=== PATIENT | female | born 1995 | race Caucasian/White ===

== ENCOUNTER 2019-07-20 13:15 | Emergency (ER) | payer MEDICAID ==
[~2019-07-20] VITALS: Ht 154.9 cm; Wt 74.5 kg
[~2019-07-20 13:15] MED LIST: MOTRIN 800800 MG/TAB PO; NORCO 325 MG-51 TAB PO
[2019-07-20 13:25] VITALS: BP 118/72; TEMP 98.8
[2019-07-20 14:15] LABS: STREP SCREEN NEGATIVE
[2019-07-20 15:11] VITALS: PULSE 94
== END 2019-07-20 15:11 | disposition home or self-care (01) ==
LOC: COL.ER 13:15
PROVIDERS: Physician Assistant
DX: O99.511 Diseases of the respiratory system complicating pregnancy, first trimester (principal); J06.9 Acute upper respiratory infection, unspecified; J45.909 Unspecified asthma, uncomplicated; Z3A.11 11 weeks gestation of pregnancy

== ENCOUNTER 2020-02-05 05:35 | Inpatient (IN) | payer MEDICAID ==
[~2020-02-05] VITALS: Ht 157.5 cm; Wt 75.5 kg
[2020-02-05] VITALS (41 sets, daily range): BP systolic 103–145; BP diastolic 54–84; PULSE 80–111; TEMP 97.4–98.7
--- NOTE | 2020-02-05 05:30 | NUR ---
G1 at 39.6 weeks gestation to LDR3 with c/o contractions. Patient changed into gown, wedged right in bed. Patient reports good movement and denies leaking of fluid or vaginal bleeding. EFMs explained and applied. FHR 140 bpm and reactive. CTX q2-4 minutes, patient breathing through them. VSS. SVE 4/80/-2. Assessment completed. Plan of care reviewed.
[2020-02-05] MEDS ORDERED: PRENATAL TABLET PO (06:27)
[2020-02-05] MEDS ORDERED: NATURAL IRON65 MG (06:28)
--- NOTE | 2020-02-05 06:30 | NUR ---
Assumed care of patient. Rests in bed, alert, significant other at bedside. Breathes throught contractions.
[2020-02-05 06:43] LABS: HEMOGLOBIN 12.2 g/dl (12.5-16.0); MEAN CELL VOLUME 82 fl (80.0-100.0); MEAN CORPUSCULAR HEMOGLOBIN 28 pg (27.0-31.0); MEAN CORPUSCULAR HGB CONC 34 g/dl (33.0-37.0); PLATELET COUNT 244 K/mm3 (130-400); RED BLOOD COUNT 4.42 M/mm3 (4.10-5.30)
[2020-02-05 06:45] LABS: HEMATOCRIT 36.3 % (37.0-47.0)
--- NOTE | 2020-02-05 06:45 | NUR ---
7679 Anesthesia called to let know request for epidural. Lactated ringers iv started bolus.
--- NOTE | 2020-02-05 07:15 | NUR ---
0721 Anesthesia here, visits with patient. Single shot given at 0731 by Priscila Mendoza c.r.n.a. Test dose given aat 0737 by anesthesia.
[2020-02-05 07:30] LABS: BAND 17 % (0-10); EOSINOPHIL 3 % (0-4); LYMPHOCYTE 17 % (20.0-51.0); METAMYELOCYTE 1 % (0-0); NEUTROPHILS 62 % (42.0-75.2); PLATELET ESTIMATE NORMAL (NORMAL)
--- NOTE | 2020-02-05 07:30 | NUR ---
0740 Lies down after epidural. States feels better already.
--- NOTE | 2020-02-05 08:00 | NUR ---
Rests in bed, alert. States feeling sick. Emisis basin given to patient. Cool wash cloth given. 100 ccs of white color liquid noted.
--- NOTE | 2020-02-05 08:15 | NUR ---
Rests in bed, alert. Chua catheter placed per sterile technique. Moderate amount of clear yellow urine noted.
--- NOTE | 2020-02-05 10:00 | NUR ---
Dr. Santana here, visits with patient. Arom done by Dr. Santana, moderate amount of clear fluid noted. Pad changed and brie-care given.
--- NOTE | 2020-02-05 12:15 | NUR ---
Patient complete. Dr. Santana notified. See physicians notification. 1220 Starts pushing with contractions.
--- NOTE | 2020-02-05 12:45 | NUR ---
Continues to push with contractions. Tolerates well.
--- NOTE | 2020-02-05 13:00 | NUR ---
Rests in bed, pushes with contractions. Denies any needs at this time.
--- NOTE | 2020-02-05 13:15 | NUR ---
Called Dr. Santana to come to hospital. Dr. Santana states to have patient labor down for about fifteen minutes. This nurse stops pushing with patient.
--- NOTE | 2020-02-05 13:30 | NUR ---
Dr. Santana here, starts pushing with patient.
--- NOTE | 2020-02-05 13:45 | NUR ---
Continues to push with Dr. Santana. Does well.
--- NOTE | 2020-02-05 14:06 | NUR ---
Spontaneous delivery of baby boy by Dr. Santana. 1409 Spontaneous delivery of placenta by Dr. Santana. Pitocin infusing at 333ccs an hour.
--- NOTE | 2020-02-05 14:15 | NUR ---
Rests in bed, alert. Holds baby lovingly. Dr. Santana doing repair work.
--- NOTE | 2020-02-05 14:45 | NUR ---
Continues to hold baby lovingly, tearful, father of baby at bedside.
--- NOTE | 2020-02-05 15:00 | NUR ---
Rests in bed, alert. Holds baby, denies any needs at this time.
--- NOTE | 2020-02-05 17:15 | NUR ---
Ambulates to the bathroom. Voids moderate amount of clear yellow urine. Mara-care shown and done by patient. Ice pack on, clean gown on. Ambulates to room 207, tolerates well. Denies any discomfort or needs at this time.
[2020-02-06 02:00] VITALS: BP 105/58; PULSE 92; TEMP 97.8
[2020-02-06 05:28] VITALS: BP 111/54; PULSE 78; TEMP 97.6
[2020-02-06 08:30] VITALS: BP 120/66; PULSE 84; TEMP 97.7
[2020-02-06 12:30] VITALS: BP 123/63; PULSE 94; TEMP 98.3
[2020-02-06] MEDS ORDERED: MOTRIN 600600 MG/TAB PO (12:59)
== END 2020-02-06 17:00 | disposition home or self-care (01) | DRG 807 ==
LOC: LDR 05:35 → OB 17:15
PROVIDERS: Obstetrics & Gynecology; ADMIT Student in an Organized Health Care Education/Training Program
PROC: 10E0XZZ Delivery of Products of Conception, External Approach (ICD-10-PCS; principal; 2020-02-05)
PROC: 0KQM0ZZ Repair Perineum Muscle, Open Approach (ICD-10-PCS; 2020-02-05)
DX: O99.52 Diseases of the respiratory system complicating childbirth (principal); Z37.0 Single live birth; J45.20 Mild intermittent asthma, uncomplicated; O99.214 Obesity complicating childbirth; O99.354 Diseases of the nervous system complicating childbirth; G43.909 Migraine, unspecified, not intractable, without status migrainosus; O70.1 Second degree perineal laceration during delivery; Z3A.39 39 weeks gestation of pregnancy
CPT/HCPCS: J2590; J2795; J7120

== ENCOUNTER 2020-03-14 07:13 | Emergency (ER) | payer MEDICAID ==
[~2020-03-14] VITALS: Ht 157.5 cm; Wt 70.5 kg
[~2020-03-14 07:13] MED LIST changes: +CEPHALEXIN500 M1 PO; +MOTRIN 600600 MG/TAB PO; +NATURAL IRON65 MG PO; +PRENATAL TABLET PO; +STOOL SOFTENER100 M2 PO
[2020-03-14 07:24] VITALS: TEMP 97.8
[2020-03-14 07:45] LABS: COLLECTION METHOD CLEAN CATCH
[2020-03-14 07:48] LABS: BASO # 0.1 (0.0-0.2); BASO % 0.6 % (0.0-2.0); EOS # 2.3 (0.0-0.7); EOS % 20.9 % (0-4.0); GRAN % 54.7 % (42.2-75.2); HEMATOCRIT 38.4 % (37.0-47.0); HEMOGLOBIN 12.7 g/dl (12.5-16.0); LYMPH # 1.8 (1.2-3.4); LYMPH % 16.2 % (20.0-51.0); MEAN CELL VOLUME 84 fl (80.0-100.0); MEAN CORPUSCULAR HEMOGLOBIN 28 pg (27.0-31.0); MEAN CORPUSCULAR HGB CONC 33 g/dl (33.0-37.0); MEAN PLATELET VOLUME 9.2 fl (7.4-10.4); MONO # 0.7 (0.1-0.6); MONO % 6.2 % (1.7-9.3); PLATELET COUNT 289 K/mm3 (130-400); REDCELL DISTRIBUTION WIDTH-CV 12.8 % (11.5-14.5)
[2020-03-14 07:53] LABS: PH 6 (5-8); SQUAMOUS EPITHELIAL None Seen /hpf; URINE APPEARANCE Clear; URINE BACTERIA None Seen /hpf; URINE BILIRUBIN Negative (NEGATIVE); URINE BLOOD Negative (NEGATIVE); URINE COLOR Straw; URINE GLUCOSE Negative (NEGATIVE); URINE KETONE Negative (NEGATIVE); URINE LEUKOCYTE ESTERASE Negative (NEGATIVE); URINE NITRATE Negative (NEGATIVE); URINE PROTEIN(semi-quant) Negative (NEGATIVE); URINE RBC None Seen /hpf; URINE UROBILINOGEN Negative (NEGATIVE)
[2020-03-14 08:01] LABS: ALBUMIN 4.1 gm/dL (3.5-5.0); BILIRUBIN,TOTAL 0.3 mg/dL (0.0-1.0); C-REACTIVE PROTEIN 0.7 mg/dL (0.0-0.9); CALCIUM 9.1 mg/dL (8.4-10.2); CREATININE, serum 0.56 (0.52-1.25); TOTAL PROTEIN 7.6 gm/dL (6.4-8.2)
[2020-03-14 10:44] VITALS: BP 111/68; PULSE 78
[2020-03-15] MEDS ORDERED: NORCO 325 MG-51 TAB PO (03:35)
[2020-03-15] MEDS ORDERED: ZOFRAN ODT4 MG PO (03:35)
== END 2020-03-14 10:45 | disposition home or self-care (01) ==
LOC: COL.ER 07:13
PROVIDERS: Emergency Medicine
DX: K80.50 Calculus of bile duct without cholangitis or cholecystitis without obstruction (principal)

== ENCOUNTER 2020-03-15 01:45 | Emergency (ER) | payer MEDICAID ==
[~2020-03-15] VITALS: Ht 157.5 cm; Wt 70.5 kg
[2020-03-15 02:06] VITALS: BP 136/82; TEMP 98.1
[2020-03-15 02:11] LABS: HEMATOCRIT 37.9 % (37.0-47.0); HEMOGLOBIN 12.5 g/dl (12.5-16.0); MEAN CELL VOLUME 83 fl (80.0-100.0); MEAN CORPUSCULAR HEMOGLOBIN 27 pg (27.0-31.0); MEAN CORPUSCULAR HGB CONC 33 g/dl (33.0-37.0); MEAN PLATELET VOLUME 9.5 fl (7.4-10.4); PLATELET COUNT 310 K/mm3 (130-400); RED BLOOD COUNT 4.57 M/mm3 (4.10-5.30); REDCELL DISTRIBUTION WIDTH-CV 12.7 % (11.5-14.5)
[2020-03-15 02:29] LABS: ALANINE AMINOTRANSFERASE 103 U/L (4-34); ALKALINE PHOSPHATASE 125 U/L (50-136); ANION GAP 9 mmol/L (7-16); AST,SGOT 62 U/L (15-37); BILIRUBIN,TOTAL 0.3 mg/dL (0.0-1.0); BLOOD UREA NITROGEN 11 mg/dL (7-17); C-REACTIVE PROTEIN < 0.5 mg/dL (0.0-0.9); CALCIUM 8.8 mg/dL (8.4-10.2); CARBON DIOXIDE 26 mmol/L (22-30); CHLORIDE 103 mmol/L (98-107); CREATININE, serum 0.58 (0.52-1.25); GLUCOSE 102 mg/dL (74-106); POTASSIUM 3.7 mmol/L (3.4-5.0); SODIUM 138 mmol/L (137-145); TOTAL PROTEIN 7.2 gm/dL (6.4-8.2)
[2020-03-15 02:52] LABS: BAND 9 % (0-10); BASOPHIL 2 % (0-2); EOSINOPHIL 8 % (0-4); LYMPHOCYTE 19 % (20.0-51.0); METAMYELOCYTE 2 % (0-0); NEUTROPHILS 54 % (42.0-75.2)
[2020-03-15 02:53] LABS: PLATELET ESTIMATE NORMAL (NORMAL); TEAR DROP CELLS 1+
[2020-03-15] MEDS ORDERED: ZOFRAN ODT4 MG PO (03:35)
[2020-03-15] MEDS ORDERED: NORCO 325 MG-51 TAB PO (03:35)
[2020-03-15 03:57] VITALS: PULSE 94
== END 2020-03-15 04:00 | disposition home or self-care (01) ==
LOC: COL.ER 01:45
PROVIDERS: Nurse Practitioner
DX: R10.11 Right upper quadrant pain (principal); R11.2 Nausea with vomiting, unspecified; K80.80 Other cholelithiasis without obstruction; Z79.1 Long term (current) use of non-steroidal anti-inflammatories (NSAID)
CPT/HCPCS: J1170; J2405; J7030

== ENCOUNTER 2020-04-05 05:44 | Day surgery (SDC) | payer MEDICAID ==
[2020-04-05] VITALS (7 sets, daily range): BP systolic 98–128; BP diastolic 55–83; PULSE 68–98; TEMP 97.5–98.7
[~2020-04-05] VITALS: Ht 157.5 cm; Wt 73.3 kg
[~2020-04-05 05:44] MED LIST changes: +ZOFRAN ODT4 MG PO
[2020-04-05] MEDS ORDERED: NORCO 325 MG-51 TAB PO ×2 (05:49→08:21)
[2020-04-05] MEDS ORDERED: ZYRTEC 10MG10 MG PO (05:49)
--- NOTE | 2020-04-05 09:05 | NUR ---
The patient arrived back to [place] [facility] from the recovery room at this time. The patient appears alert and oriented and denies any nausea but reports some discomfort in her abdomen at this time. Post operative vital signs were started at this time. The patient has some ice chips and appears to be tolerating them well, she denies wanting anything further to eat or drink at this time. The patient has three bandaids to her abdomen that appear clean, dry and intact. Call light is within reach. Will continue to monitor the patient.
--- NOTE | 2020-04-05 09:20 | NUR ---
The patient appears to be resting comfortably on the cart at this time. Vital signs appear stable. The patient agrees to try some apple juice and toast with jelly. Call light remains within reach. Will continue to monitor the patient.
--- NOTE | 2020-04-05 09:35 | NUR ---
The patient appears to be resting comfortably on the cart and tolerating the food and drink well. The patien does report some discomfort in her left shoulder and the nurse explained how this can be caused by a laparoscopic surgery. The patient is to be given a PRN dose of [place] once she has finished her food.
--- NOTE | 2020-04-05 09:50 | NUR ---
The patient was given a PRN dose of [place] one tab at this time to help with pain control. The patient has finished her food and drink and appeared to tolerate both well. Vital signs appear stable. Will continue to monitor the patient.
--- NOTE | 2020-04-05 10:12 | NUR ---
The patient appears to be resting comfortably on the cart with her eyes closed at this time. Respirations even and unlabored. Will continue to monitor the patient. Vital signs remain stable. Will continue to monitor the patient.
--- NOTE | 2020-04-05 10:54 | NUR ---
The patient appears to be resting quietly with her eyes closed at this time. Respirations and unable. Vital signs appear stable. Call light remains within reach. Will continue to monitor the patient.
--- NOTE | 2020-04-05 11:10 | NUR ---
The patient ambulated to the bathroom with the stand by assistance of one nurse and appeared to tolerate the activity well. The nurse instructed the patient to get dressed if she is successful in voiding and notify the staff when she is ready to review her discharge paperwork.
--- NOTE | 2020-04-05 11:30 | NUR ---
Discharge instructions were reviewed with the patient at this time. She verbalized understanding and have no questions for the nurse at this time. The patient's belongings and discharge paperwork were sent with her. The patient is dressed and ready to be escorted out.
--- NOTE | 2020-04-05 11:37 | NUR ---
The patient was escorted out via wheelchair to a private vehicle by NAZIA Salazar. The patient's belongings and discharge paperwork were sent with her. The patient's grandmother is present to drive her home.
== END 2020-04-05 11:37 | disposition home or self-care (01) ==
LOC: SDCO 05:44
DX: K80.10 Calculus of gallbladder with chronic cholecystitis without obstruction (principal); D64.9 Anemia, unspecified; J45.909 Unspecified asthma, uncomplicated; G43.909 Migraine, unspecified, not intractable, without status migrainosus; Z85.42 Personal history of malignant neoplasm of other parts of uterus; Z20.828 Contact with and (suspected) exposure to other viral communicable diseases; Z80.3 Family history of malignant neoplasm of breast; Z83.3 Family history of diabetes mellitus
CPT/HCPCS: J1885; J2405; J2704; J3010; J7120; Q9967

== ENCOUNTER 2021-11-18 07:55 | Emergency (ER) | payer MEDICAID ==
[~2021-11-18] VITALS: Ht 157.5 cm; Wt 70.5 kg
[~2021-11-18 07:55] MED LIST changes: +ZYRTEC 10MG10 MG PO
[2021-11-18 08:06] VITALS: TEMP 97.8
[2021-11-18 08:48] LABS: COLLECTION METHOD CLEAN CATCH
[2021-11-18 08:51] LABS: BASO % 0.3 % (0.0-2.0); EOS # 0.7 K/mm3 (0.0-0.7); EOS % 5.9 % (0.0-4.0); GRAN # 8.8 K/mm3 (1.4-6.5); GRAN % 72.8 % (42.2-75.2); HEMOGLOBIN 11.8 g/dl (12.5-16.0); LYMPH # 1.6 K/mm3 (1.2-3.4); LYMPH % 13.4 % (20.0-51.0); MEAN CELL VOLUME 86 fl (80.0-100.0); MEAN CORPUSCULAR HEMOGLOBIN 29 pg (27-31); MEAN CORPUSCULAR HGB CONC 33 g/dl (33.0-37.0); MEAN PLATELET VOLUME 9.4 fl (7.4-10.4); MONO # 0.9 K/mm3 (0.1-0.6); PLATELET COUNT 401 K/mm3 (130-400); RED BLOOD COUNT 4.12 M/mm3 (4.10-5.30); REDCELL DISTRIBUTION WIDTH-CV 12.3 % (11.5-14.5)
[2021-11-18 08:53] LABS: HEMATOCRIT 35.3 % (37.0-47.0)
[2021-11-18 08:56] LABS: MUCOUS Present (NOT PRESENT); PH 5 (5-8); SQUAMOUS EPITHELIAL 0-2 /hpf (0-10); URINE APPEARANCE Hazy (CLEAR/HAZY); URINE BACTERIA None Seen /hpf (NONE SEEN); URINE BILIRUBIN Negative (NEGATIVE); URINE BLOOD 1+ (NEGATIVE); URINE COLOR Amber (YELLOW); URINE GLUCOSE Negative (NEGATIVE); URINE KETONE Negative (NEGATIVE); URINE LEUKOCYTE ESTERASE Negative (NEGATIVE); URINE NITRATE Negative (NEGATIVE); URINE PROTEIN(semi-quant) Negative (NEGATIVE); URINE UROBILINOGEN Negative (NEGATIVE)
[2021-11-18 09:09] LABS: ALBUMIN 3.6 gm/dL (3.5-5.0); BILIRUBIN,TOTAL 0.3 mg/dL (0.2-1.2); CALCIUM 8.8 mg/dL (8.4-10.2); CREATININE, serum 0.71 mg/dL (0.57-1.11); POTASSIUM 3.6 mmol/L (3.5-4.5); TOTAL PROTEIN 7.5 gm/dL (6.2-8.1)
[2021-11-18 10:10] VITALS: BP 105/71; PULSE 80
== END 2021-11-18 10:10 | disposition home or self-care (01) ==
LOC: COL.ER 07:55
PROVIDERS: Student in an Organized Health Care Education/Training Program
DX: R05.9 Cough, unspecified (principal)
CPT/HCPCS: J2405; Q9967

== ENCOUNTER 2023-02-28 23:00 | Emergency (ER) | payer MEDICAID ==
[~2023-02-28] VITALS: Ht 157.5 cm; Wt 77.7 kg
[2023-02-28 23:06] VITALS: TEMP 98.3
[2023-02-28 23:51] VITALS: BP 109/56; PULSE 86
== END 2023-02-28 23:51 | disposition home or self-care (01) ==
LOC: COL.ER 23:00
DX: O26.91 Pregnancy related conditions, unspecified, first trimester (principal); Z3A.00 Weeks of gestation of pregnancy not specified

== ENCOUNTER 2023-08-30 18:29 | Outpatient (CLI) | payer MEDICAID ==
[~2023-08-30] VITALS: Ht 157.5 cm; Wt 76.4 kg
[2023-08-30 18:29] VITALS: BP 127/75; PULSE 100; TEMP 97.9
[~2023-08-30 18:29] MED LIST changes: +ZOLOFT 100MG100 MG PO
--- NOTE | 2023-08-30 18:45 | NUR ---
1845 G2L1 36.0 WEEKS GEST. TO LR2 WITH C/O DECREASED MOVEMENT. STATES GOT UP AROUND 1600 TODAY AFTER SLEEPING ALL DAY AND WENT TO BR AND LOST HER MUCOUS PLUG. CALLED THE OFFICE TO LET THEM KNOW AND THEY TOLD HER TO STAY HOME BUT TO COME TO THE HOSPITAL IF SHE HAD ANY DECREASED MOVEMENT. STATES ONLY FELT THE BABY MOVE TWO TIMES IN AN HOUR. EFM ON. FHT BASELINE 155 WITH ACCELS TO 160-170. STATES NOT CONTRACTIONS. ADM ASSESSMENT DONE.
--- NOTE | 2023-08-30 19:30 | NUR ---
1930 BABY HEARD MOVING ON EFM AND PT STATES HAS BEEN FEELING THE BABY MOVE. GOOD VARIALBILITY AND ACCELS NOTED WITH MOVEMENT. DR LOPEZ NOTIFIED AND ORDER TO DISMISS RECEIVED. 1950 HOME WITH INSTRUCTIONS.
== END 2023-08-30 19:50 | disposition home or self-care (01) ==
LOC: LDRO 18:29 → LDR 18:29 → LDRO 19:50
DX: O36.8130 Decreased fetal movements, third trimester, not applicable or unspecified (principal); Z3A.36 36 weeks gestation of pregnancy
CPT/HCPCS: OP

== ENCOUNTER 2023-12-25 04:31 | Emergency (ER) | payer MEDICAID ==
[~2023-12-25] VITALS: Ht 157.5 cm; Wt 72.7 kg
[~2023-12-25 04:31] MED LIST changes: +IBU800 M1 PO; +ROXICODONE 55 MG/TAB PO; +TYLENOL 500MG500 MG PO; +ZOLOFT 25MG25 MG PO
[2023-12-25 04:37] VITALS: TEMP 98.3
[2023-12-25] MEDS ORDERED: NS 500 ML IV ONE (05:15)
[2023-12-25] MEDS ORDERED: ALPRAZolam 0.5 MG TAB PO ONE (05:15)
[2023-12-25 06:17] LABS: COLLECTION METHOD CLEAN CATCH
[2023-12-25 06:23] LABS: HEMOGLOBIN 12.7 g/dl (12.5-16.0); MEAN CELL VOLUME 84 fl (80.0-100.0); MEAN CORPUSCULAR HEMOGLOBIN 27 pg (27-31); MEAN CORPUSCULAR HGB CONC 33 g/dl (33.0-37.0); MEAN PLATELET VOLUME 9.6 fl (7.4-10.4); PLATELET COUNT 442 K/mm3 (130-400); RED BLOOD COUNT 4.66 M/mm3 (4.10-5.30); REDCELL DISTRIBUTION WIDTH-CV 13.4 % (11.5-14.5)
[2023-12-25 06:31] LABS: PH 7.5 (5.0-8.5); URINE APPEARANCE CLEAR (CLEAR/HAZY); URINE BLOOD NEGATIVE (NEGATIVE); URINE COLOR Dark Yellow (YELLOW); URINE GLUCOSE NEGATIVE (NEGATIVE); URINE KETONE NEGATIVE (NEGATIVE); URINE NITRATE NEGATIVE (NEGATIVE); URINE PROTEIN(semi-quant) TRACE (NEGATIVE)
[2023-12-25 06:41] LABS: ANION GAP 12 mmol/L (7-16); BLOOD UREA NITROGEN 9 mg/dL (7-19); CALCIUM 9.3 mg/dL (8.4-10.2); CHLORIDE 104 mEq/L (98-107); CREATININE, serum 0.67 mg/dL (0.57-1.11); GLUCOSE 89 mg/dL (70-99); MAGNESIUM 1.8 mg/dL (1.6-2.6); POTASSIUM 3.1 mEq/L (3.5-4.5); SODIUM 139 mEq/L (136-145)
[2023-12-25 07:02] LABS: THYROID STIMULATING HORMONE 1.228 uIU/mL (0.350-4.940)
[2023-12-25 07:15] LABS: TROPONIN-I < 0.010 ng/mL (0.00-0.033)
[2023-12-25] MEDS ORDERED: XANAX 0.5MG0.5 MG PO (07:28)
[2023-12-25 07:45] VITALS: BP 119/75; PULSE 85
[2023-12-25 07:47] LABS: BAND 2 % (0-10); EOSINOPHIL 33 % (0-4); LYMPHOCYTE 14 % (20.0-51.0); NEUTROPHILS 49 % (42.0-75.2)
[2023-12-25 07:48] LABS: PLATELET ESTIMATE INCREASED (NORMAL)
== END 2023-12-25 07:45 | disposition home or self-care (01) ==
LOC: COL.ER 04:31
PROVIDERS: Internal Medicine
DX: O99.345 Other mental disorders complicating the puerperium (principal); F41.1 Generalized anxiety disorder; O72.2 Delayed and secondary postpartum hemorrhage; F53.0 Postpartum depression; O90.89 Other complications of the puerperium, not elsewhere classified; R21 Rash and other nonspecific skin eruption
CPT/HCPCS: J7040